=== PATIENT | female | born 1980 | race Caucasian/White ===

== ENCOUNTER 2018-06-15 20:57 | Emergency (ER) | payer SELFPAY, OTHER ==
[2018-06-15] MEDS: ONDANSETRON (ODT) 4 MG TAB ODT (23:57)
[2018-06-15] MEDS: HYDROCODONE/APAP (10/325) TAB PO (23:57)
[2018-06-16 00:30] LABS: ADD MAN DIFF? NO; BASOPHILS % 0.4 % (0.0-2.0); EOSINOPHILS # 0.3 10^3/ul (0.0-0.5); EOSINOPHILS % 3.6 % (0.0-7.0); HEMATOCRIT 31.4 % (37.0-47.0); HEMOGLOBIN 10.2 g/dl (12.0-16.0); LYMPHOCYTES # 2.4 10^3/ul (0.8-2.9); LYMPHOCYTES % 26.8 % (15.0-51.0); MEAN CORPUSCULAR HEMOGLOBIN 25.2 pg (29.0-33.0); MEAN CORPUSCULAR HGB CONC 32.5 g/dl (32.0-37.0); MEAN CORPUSCULAR VOLUME 77.5 fl (82.0-101.0); MEAN PLATELET VOLUME 11.4 fl (7.4-10.4); MONOCYTE # 0.4 10^3/ul (0.3-0.9); MONOCYTES % 4.9 % (0.0-11.0); NEUTROPHIL # 5.7 10^3/ul (1.6-7.5); NEUTROPHILS % 63.9 % (39.0-77.0); PLATELET COUNT 212 10^3/UL (140-415); RED BLOOD COUNT 4.05 10^6/ul (4.20-5.40); RED CELL DISTRIBUTION WIDTH 13.8 % (11.5-14.5)
[2018-06-16 00:36] LABS: ADD UMIC NO; UR ASCORBIC ACID NEGATIVE (NEGATIVE); UR BILIRUBIN (Dip) NEGATIVE (NEGATIVE); UR BLOOD (Dip) NEGATIVE (NEGATIVE); UR CLARITY CLEAR (CLEAR); UR COLOR YELLOW (YELLOW); UR GLUCOSE (Dip) 3+ mg/dL (NEGATIVE); UR KETONES (Dip) NEGATIVE (NEGATIVE); UR LEUKOCYTE ESTERASE (Dip) NEGATIVE Leu/ul (NEGATIVE); UR NITRITE (Dip) NEGATIVE (NEGATIVE); UR TOTAL PROTEIN (Dip) NEGATIVE (NEGATIVE); UR UROBILINOGEN (Dip) NEGATIVE (NEGATIVE)
[2018-06-16 00:48] LABS: ALANINE AMINOTRANSFERASE 30 IU/L (13-69); ALBUMIN 4.2 g/dl (3.3-4.9); ALKALINE PHOSPHATASE 104 IU/L (42-121); ANION GAP 11 (5-13); ASPARTATE AMINO TRANSFERASE 31 IU/L (15-46); BILIRUBIN,INDIRECT 0.2 mg/dl (0-1.1); BILIRUBIN,TOTAL 0.2 mg/dl (0.2-1.3); BLOOD UREA NITROGEN 9 mg/dl (7-20); CARBON DIOXIDE 28 mmol/L (21-31); CHLORIDE 97 mmol/L (97-110); CREATININE 0.53 mg/dl (0.44-1.00); Estimated GFR > 60 mL/min (>60); GLUCOSE 257 mg/dl (70-220); LIPASE 58 U/L (23-300); POTASSIUM 3.7 mmol/L (3.5-5.1); SODIUM 136 mmol/L (135-144)
== END 2018-06-16 01:13 | disposition home or self-care (01) ==
LOC: FTE 20:57
DX: R10.84 Generalized abdominal pain (principal); I10 Essential (primary) hypertension; R11.10 Vomiting, unspecified; E11.9 Type 2 diabetes mellitus without complications; Z79.4 Long term (current) use of insulin
CPT/HCPCS: 80053; 81003; 81025; 83690; 85025; 99283

== ENCOUNTER 2018-10-09 18:55 | Emergency (ER) | payer OTHER ==
[2018-10-09 22:56] LABS: ADD MAN DIFF? NO
[2018-10-09 22:57] LABS: BASOPHIL # 0.1 10^3/ul (0.0-0.1); BASOPHILS % 0.6 % (0.0-2.0); EOSINOPHILS # 0.3 10^3/ul (0.0-0.5); EOSINOPHILS % 3.8 % (0.0-7.0); HEMATOCRIT 35.5 % (37.0-47.0); HEMOGLOBIN 11.1 g/dl (12.0-16.0); LYMPHOCYTES # 1.8 10^3/ul (0.8-2.9); LYMPHOCYTES % 21.7 % (15.0-51.0); MEAN CORPUSCULAR HEMOGLOBIN 22.5 pg (29.0-33.0); MEAN CORPUSCULAR HGB CONC 31.3 g/dl (32.0-37.0); MEAN CORPUSCULAR VOLUME 71.9 fl (82.0-101.0); MEAN PLATELET VOLUME 11.3 fl (7.4-10.4); MONOCYTE # 0.4 10^3/ul (0.3-0.9); MONOCYTES % 4.1 % (0.0-11.0); NEUTROPHIL # 5.9 10^3/ul (1.6-7.5); NEUTROPHILS % 69.2 % (39.0-77.0); PLATELET COUNT 179 10^3/UL (140-415); RED BLOOD COUNT 4.94 10^6/ul (4.20-5.40); RED CELL DISTRIBUTION WIDTH 15.7 % (11.5-14.5)
[2018-10-09 22:57] LABS: WHITE BLOOD COUNT 8.5 10^3/ul (4.8-10.8)
[2018-10-09 23:04] LABS: ADD UMIC YES; UR ASCORBIC ACID NEGATIVE (NEGATIVE); UR BACTERIA FEW /HPF (NONE SEEN); UR BILIRUBIN (Dip) NEGATIVE (NEGATIVE); UR BLOOD (Dip) NEGATIVE (NEGATIVE); UR CLARITY SLIGHTLY CLOUDY (CLEAR); UR COLOR YELLOW (YELLOW); UR GLUCOSE (Dip) 3+ mg/dL (NEGATIVE); UR KETONES (Dip) TRACE mg/dL (NEGATIVE); UR LEUKOCYTE ESTERASE (Dip) TRACE Leu/ul (NEGATIVE); UR NITRITE (Dip) POSITIVE (NEGATIVE); UR RBC 2 /HPF (0-5); UR SPECIFIC GRAVITY (Dip) 1.036 (1.003-1.030); UR SQUAMOUS EPITHELIAL CELL FEW /HPF (FEW); UR TOTAL PROTEIN (Dip) NEGATIVE (NEGATIVE); UR UROBILINOGEN (Dip) NEGATIVE (NEGATIVE); UR WBC 2 /HPF (0-5)
[2018-10-09] MEDS: KETOROLAC 30 MG INJ IM (23:17)
[2018-10-09] MEDS: ONDANSETRON (ODT) 4 MG TAB ODT (23:17)
[2018-10-09 23:18] LABS: ALANINE AMINOTRANSFERASE 32 IU/L (13-69); ALBUMIN 4.5 g/dl (3.3-4.9); ALBUMIN/GLOBULIN RATIO 1.36; ALKALINE PHOSPHATASE 106 IU/L (42-121); ANION GAP 13 (5-13); ASPARTATE AMINO TRANSFERASE 29 IU/L (15-46); BILIRUBIN,INDIRECT 0.5 mg/dl (0-1.1); BILIRUBIN,TOTAL 0.5 mg/dl (0.2-1.3); BLOOD UREA NITROGEN 11 mg/dl (7-20); CALCIUM 9.5 mg/dl (8.4-10.2); CARBON DIOXIDE 28 mmol/L (21-31); CHLORIDE 97 mmol/L (97-110); CREATININE 0.52 mg/dl (0.44-1.00); Estimated GFR > 60 mL/min (>60); GLUCOSE 306 mg/dl (70-220); LIPASE 76 U/L (23-300); POTASSIUM 3.6 mmol/L (3.5-5.1); SODIUM 138 mmol/L (135-144); TOTAL PROTEIN 7.8 g/dl (6.1-8.1)
== END 2018-10-09 23:55 | disposition home or self-care (01) ==
LOC: FTE 23:55
DX: M54.5 Low back pain (principal); R30.0 Dysuria; I10 Essential (primary) hypertension; E11.9 Type 2 diabetes mellitus without complications; Z79.4 Long term (current) use of insulin
CPT/HCPCS: 76775; 80053; 81001; 83690; 84703; 85025; 96372; 99285-25

== ENCOUNTER 2019-02-14 17:52 | Emergency (ER) | payer OTHER ==
[2019-02-14] MEDS: HYDROCODONE/APAP (5/325) TAB PO (18:35)
[2019-02-14] MEDS: CEFTRIAXONE 1 GM INJ IM (18:35)
[2019-02-14] MEDS: ONDANSETRON (ODT) 4 MG TAB ODT (18:35)
[2019-02-14] MEDS: LIDOCAINE 1% (MPF) 5 ML VIAL INJ (18:35)
== END 2019-02-14 18:54 | disposition home or self-care (01) ==
LOC: FTE 17:52
DX: L02.01 Cutaneous abscess of face (principal); I10 Essential (primary) hypertension; E11.9 Type 2 diabetes mellitus without complications; Z79.4 Long term (current) use of insulin
CPT/HCPCS: 96372; 99284-25

== ENCOUNTER 2019-02-16 16:22 | Inpatient (IN) | payer OTHER ==
[2019-02-16 17:30] LABS: ADD MAN DIFF? NO
[2019-02-16] MEDS: SODIUM CHLORIDE 0.9% 1L BAG IV* (17:32)
[2019-02-16 17:34] LABS: WHITE BLOOD COUNT 9.4 10^3/ul (4.8-10.8)
[2019-02-16 17:34] LABS: BASOPHIL # 0.1 10^3/ul (0.0-0.1); BASOPHILS % 0.5 % (0.0-2.0); EOSINOPHILS # 0.3 10^3/ul (0.0-0.5); EOSINOPHILS % 3.4 % (0.0-7.0); HEMATOCRIT 34.5 % (37.0-47.0); HEMOGLOBIN 10.5 g/dl (12.0-16.0); LYMPHOCYTES # 2.1 10^3/ul (0.8-2.9); LYMPHOCYTES % 22.4 % (15.0-51.0); MEAN CORPUSCULAR HEMOGLOBIN 22.9 pg (29.0-33.0); MEAN CORPUSCULAR HGB CONC 30.4 g/dl (32.0-37.0); MEAN CORPUSCULAR VOLUME 75.3 fl (82.0-101.0); MONOCYTE # 0.4 10^3/ul (0.3-0.9); MONOCYTES % 3.7 % (0.0-11.0); NEUTROPHIL # 6.5 10^3/ul (1.6-7.5); NEUTROPHILS % 69.5 % (39.0-77.0); PLATELET COUNT 225 10^3/UL (140-415); RED BLOOD COUNT 4.58 10^6/ul (4.20-5.40); RED CELL DISTRIBUTION WIDTH 15.9 % (11.5-14.5)
[2019-02-16] MEDS: MEROPENEM 1 GM/50ML(PMX) 50 ML IVPB (17:42)
[2019-02-16 17:57] LABS: INR 1.11; PROTIME 14.4 Sec (11.9-14.9); PT RATIO 1.1
[2019-02-16 17:58] LABS: PARTIAL THROMBOPLASTIN TIME 33.3 Sec (23.0-35.0)
[2019-02-16 18:13] LABS: TROPONIN-I < 0.012 ng/ml (0.000-0.120)
[2019-02-16 18:25] LABS: ALANINE AMINOTRANSFERASE 41 IU/L (13-69); ALBUMIN 3.8 g/dl (3.3-4.9); ALBUMIN/GLOBULIN RATIO 1.18; ALKALINE PHOSPHATASE 103 IU/L (42-121); ANION GAP 9 (5-13); ASPARTATE AMINO TRANSFERASE 45 IU/L (15-46); BILIRUBIN,INDIRECT 0.4 mg/dl (0-1.1); BILIRUBIN,TOTAL 0.4 mg/dl (0.2-1.3); BLOOD UREA NITROGEN 11 mg/dl (7-20); CALCIUM 8.9 mg/dl (8.4-10.2); CARBON DIOXIDE 32 mmol/L (21-31); CHLORIDE 96 mmol/L (97-110); CREATININE 0.62 mg/dl (0.44-1.00); Estimated GFR > 60 mL/min (>60); GLUCOSE 320 mg/dl (70-220); POTASSIUM 3.3 mmol/L (3.5-5.1); SODIUM 137 mmol/L (135-144)
[2019-02-16] MEDS: VANCOMYCIN 1 GM (PMX) 250 ML IVPB (19:05)
[2019-02-16] MEDS: POTASSIUM CHLORIDE 20 MEQ POWDER FOR ORAL SOLN PO (19:06)
[2019-02-16] MEDS ORDERED: ACETAMINOPHEN 325 MG TAB PO (19:30)
[2019-02-16] MEDS ORDERED: ONDANSETRON 4 MG INJ IV (19:30)
[2019-02-16] MEDS: IODIXANOL LOCM 50 ML BTL (19:38)
[2019-02-16] MEDS: SOD CHLORIDE 0.9% 100 ML (19:38)
[2019-02-16] MEDS ORDERED: RANITIDINE 150 MG TAB PO (20:00)
[2019-02-16] MEDS ORDERED: ADMELOG SQ (20:00)
[2019-02-16 20:11] LABS: ADD UMIC YES; UR ASCORBIC ACID NEGATIVE (NEGATIVE); UR BILIRUBIN (Dip) NEGATIVE (NEGATIVE); UR BLOOD (Dip) 1+ mg/dL (NEGATIVE); UR CLARITY CLEAR (CLEAR); UR COLOR YELLOW (YELLOW); UR GLUCOSE (Dip) 3+ mg/dL (NEGATIVE); UR KETONES (Dip) NEGATIVE (NEGATIVE); UR LEUKOCYTE ESTERASE (Dip) 2+ Leu/ul (NEGATIVE); UR NITRITE (Dip) NEGATIVE (NEGATIVE); UR RBC 1 /HPF (0-5); UR SPECIFIC GRAVITY (Dip) 1.037 (1.003-1.030); UR SQUAMOUS EPITHELIAL CELL FEW /HPF (FEW); UR TOTAL PROTEIN (Dip) NEGATIVE (NEGATIVE); UR UROBILINOGEN (Dip) NEGATIVE (NEGATIVE); UR WBC 17 /HPF (0-5)
[2019-02-16 20:57] LABS: LACTIC ACID 1.4 mmol/L (0.5-2.0)
[2019-02-16] MEDS ORDERED: DEXTROSE 50% 50 ML SYRINGE IV ×2 (21:00)
[2019-02-16] MEDS ORDERED: GLUCOSE GEL 15 GRAM TUBE PO ×2 (21:00)
[2019-02-16] MEDS: INSULIN GLARGINE [LANTus] (100 UNITS/ML) SYG SC ×2 (21:00→23:34)
[2019-02-16] MEDS: metFORMIN 500 MG TAB PO (21:00)
[2019-02-16] MEDS ORDERED: GLUCAGON 1 MG INJ IM (21:00)
[2019-02-16] MEDS ORDERED: GLUCOSE GEL 15 GRAM TUBE BUCCAL (21:00)
[2019-02-16] MEDS: METHOCARBAMOL 750 MG TAB PO (23:28)
[2019-02-16] MEDS: GABAPENTIN 300 MG CAP PO (23:29)
[2019-02-16] MEDS: HYDROCODONE/APAP (5/325) TAB PO (23:29)
[2019-02-16] MEDS: METOPROLOL 100 MG TAB PO (23:32)
[2019-02-17] MEDS: ZOLPIDEM 5 MG TAB PO (00:17)
[2019-02-17] MEDS ORDERED: ACCU-CHEK XX (02:00)
[2019-02-17] MEDS: INSULIN ASPART [NOVOLOG] 3 ML PEN SC ×8 (02:18→17:08)
[2019-02-17] MEDS: HYDROCODONE/APAP (5/325) TAB PO ×3 (04:40→13:55)
[2019-02-17] MEDS: GABAPENTIN 300 MG CAP PO ×2 (08:25→12:37)
[2019-02-17] MEDS: metFORMIN 500 MG TAB PO (08:25)
[2019-02-17] MEDS: METHOCARBAMOL 750 MG TAB PO ×2 (08:25→12:37)
[2019-02-17] MEDS: DULOXETINE 30 MG CAP DR PO (08:25)
[2019-02-17] MEDS: DOXEPIN 25 MG CAP PO (08:26)
[2019-02-17] MEDS: LORATADINE 10 MG TAB PO (08:26)
[2019-02-17] MEDS: NIFEdipine (XL) 30 MG TAB PO (08:26)
[2019-02-17] MEDS: METOPROLOL 100 MG TAB PO (08:26)
[2019-02-17] MEDS: CEFTRIAXONE 1 GM/50 ML (PMX) 50 ML IVPB (08:30)
[2019-02-17] MEDS: LIDOCAINE 1%/EPI 30 ML INJ INJ (16:40)
== END 2019-02-17 20:01 | disposition home or self-care (01) | DRG 603 ==
LOC: FTE 16:22 → MS3 19:24
PROC: 0H91XZZ Drainage of Face Skin, External Approach (ICD-10-PCS; principal; 2019-02-17)
DX: L03.211 Cellulitis of face (principal); L02.01 Cutaneous abscess of face; Z68.43 Body mass index [BMI] 50.0-59.9, adult; E78.5 Hyperlipidemia, unspecified; E11.65 Type 2 diabetes mellitus with hyperglycemia; E66.01 Morbid (severe) obesity due to excess calories; I10 Essential (primary) hypertension; M06.9 Rheumatoid arthritis, unspecified; M79.7 Fibromyalgia; Z79.4 Long term (current) use of insulin; Z79.1 Long term (current) use of non-steroidal anti-inflammatories (NSAID)
CPT/HCPCS: 36415; 70486; 71045; 80053; 81001; 82962; 83605; 84484; 85025; 85610; 85730; 87040-91; 87045; 87086; 93005; 96365; 96375; 99285-25